=== PATIENT | female | born 1980 | race Caucasian/White ===

== ENCOUNTER 2020-03-27 11:10 | Emergency (ER) | payer BC ==
--- OUTSIDE RECORDS SUMMARY | 2020-03-27 11:12 | XMS REPORT | Continuity of Care Document ---
:1980 Author Organization [facility] t Address [address] [place] [address] [place] [id number] Care Team Providers Name Role Phone Unavailable Unavailable Unavailable Payers Payer Name Policy Type Policy Number Effective Date Expiration Date S ource Problems This patient has no known problems. Allergies, Adverse Reactions, Alerts Allergy Allergy Status Severity Reaction(s) Onset Inactive Treating Comm ents Source Name Type Date Date Clinician No Known DA Active U [facility] 10-23 Trinylan Allergie 00:00: d s 00 [facility] Medications This patient has no known medications. Procedures This patient has no known procedures. Results This patient has no known results.
[2020-03-27] MEDS ORDERED: NA CHLORIDE 0.9% 1,000 ML ONE (12:09)
[2020-03-27] MEDS ORDERED: MECLIZINE HCL 12.5 MG TAB ONE (12:09)
--- NOTE | 2020-03-27 12:27 | RAD REPORT ---
EXAM DESCRIPTION: Antonio Single View03/27/2020 12:17 pm CLINICAL HISTORY: Dizziness/50 COMPARISON: none FINDINGS: The lungs appear clear of acute infiltrate. The heart is normal size IMPRESSION: No acute abnormalities displayed
[2020-03-27 12:37] LABS: Absolute Lymphocytes (CBC) 0.8 K/uL (0.7-4.9); Basophils % 0.6 % (0-1.3); Hematocrit 45.7 % (36.0-45.0); Lymphocytes % 9.6 % (15.3-44.8); MPV 7.6 fL (7.6-11.3); RBC Red Blood Cell Count 4.77 M/uL (3.86-4.86)
[2020-03-27 12:40] LABS: Urine Blood TRACE (NEG); Urine Glucose NEGATIVE (NEG); Urine Protein NEGATIVE (NEG); Urine Specific Gravity 1.005 (1.005-1.030)
[2020-03-27 13:44] LABS: BUN Blood Urea Nitrogen 10 mg/dL (7-18); Bicarbonate 28 mmol/L (21-32); Glucose Level 125 mg/dL (74-106); Magnesium 2.6 mg/dL (1.8-2.4); Potassium 3.6 mmol/L (3.5-5.1); Sodium Level 141 mmol/L (136-145); Thyroid Stimulating Hormone 0.999 uIU/mL (0.360-3.740); Troponin (Emerg Dept Use Only) < 0.02 ng/mL (0.0-0.045)
[2020-03-27 13:59] LABS: T3 Free 2.87 pg/mL (2.18-3.98)
--- NOTE | 2020-03-27 14:27 | RAD REPORT ---
EXAM DESCRIPTION: CT - Head Brain Wo Cont - 03/27/2020 2:17 pm CLINICAL HISTORY: Dizziness COMPARISON: None. TECHNIQUE: Computed axial tomography of the head was obtained. IV contrast was not requested. All CT scans are performed using dose optimization technique as appropriate and may include automated exposure control or mA/KV adjustment according to patient size. FINDINGS: An intracranial bleed is not seen . The ventricles are normal in caliber. No extra-axial fluid collection is noted. Fluid within the sinuses/ mastoids is not seen. IMPRESSION: No acute intracranial abnormality is seen. If patient's symptoms persist MRI of the bra in would be recommended.
--- NOTE | 2020-03-27 14:39 | RAD REPORT ---
EXAM DESCRIPTION: Doris Angio03/27/2020 2:21 pm CLINICAL HISTORY: Dizziness/neck pain status post adjustment by chiropractor COMPARISON: None TECHNIQUE: 50 cc Isovue 370 was administered intravenously. 3D MIP reconstruction performed All CT scans are performed using dose optimization technique as appropriate and may include automated exposure control or mA/KV adjustment according to patient size. FINDINGS: The common carotid, internal and external carotid arteries bilaterally are normal caliber without stenosis or dissection. The left vertebral artery is little bit more dominant than the right. No dissection. IMPRESSION: Unremarkable exam NASCET criteria used. Mild 0-49% stenosis Moderate 50-69% stenosis Severe 70-99% stenosis
--- NOTE | 2020-03-27 14:53 | ER ---
Nurse's Notes [facility] Name: Emily Perrin Age: 40 yrs Sex: Female : 1980 Arrival Date: 03/27/2020 Time: 11:15 Bed 20 Private MD: Diagnosis: Dizziness and giddiness;Other fatigue;Cervicalgia Presentation: 03/27 11:33 Chief complaint: Patient states: Dizziness and fatigue today was more severe. Has had ll1 this for years, had MRI last year that was clear. Coronavirus screen: Client denies travel out of the [place] in the last 14 days. fatigue. Ebola Screen: Patient denies travel to an Ebola-affected area in the 21 days before illness onset. Initial Sepsis Screen: Does the patient meet any 2 criteria? No. Patient's initial sepsis screen is negative. Does the patient have a suspected source of infection? No. Patient's initial sepsis screen is negative. Risk Assessment: Do you want to hurt yourself or someone else? Patient reports no desire to harm self or others. Onset of symptoms was March 27, 2020. 11:33 Method Of Arrival: Ambulatory ll1 11:33 Acuity: SAM 3 ll1 Triage Assessment: 12:00 General: Appears in no apparent distress. uncomfortable, slender, well groomed, ae4 Behavior is cooperative, anxious. Pain: Denies pain. EENT: No signs and/or symptoms were reported regarding the EENT system. Neuro: Level of Consciousness is awake, alert, obeys commands, Oriented to person, place, time, situation, Appropriate for age Reports dizziness, "Feeling not right" and "Like I have to concentrate real hard to understand what you are saying".. Cardiovascular: Heart tones S1 S2 present Patient's skin is warm and dry. Rhythm is regular. Respiratory: Airway is patent Respiratory effort is even, unlabored, Respiratory pattern is regular, symmetrical, Breath sounds are clear bilaterally. GI: No signs and/or symptoms were reported involving the gastrointestinal system. : No signs and/or symptoms were reported regarding the genitourinary system. Derm: Skin is pink, warm \\T\\ dry. Musculoskeletal: No signs and/or symptoms reported regarding the musculoskeletal system. 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 - Social history:: Smoking status: Patient denies any tobacco usage or history of. Screenin:51 Abuse screen: Denies threats or abuse. Nutritional screening: No deficits noted. ae4 Tuberculosis screening: No symptoms or risk factors identified. Fall Risk None identified. Assessment: 12:11 Reassessment: Radiology at bedside. ae4 14:11 Reassessment: Pt currently in CT. sv 14:52 Reassessment: Provider at bedside. ae4 Vital Signs: 11:33 BP 141 / 82; Pulse 88; Resp 16; Temp 98.9; Pulse Ox 99% ; Weight 52.62 kg; Height 4 ft. ll1 11 in. (149.86 cm); Pain 0/10; 13:11 BP 123 / 77 LA Supine (auto/reg); Pulse 66; Pulse Ox 100% ; dh3 13:13 BP 133 / 82 LA Sitting (auto/reg); Pulse 72; Pulse Ox 100% on R/A; dh3 13:15 BP 137 / 94 LA Standing (auto/reg); Pulse 71; Pulse Ox 100% on R/A; dh3 14:55 BP 124 / 84; Pulse 63; Resp 16; Pulse Ox 100% on R/A; dh3 11:33 Body Mass Index 23.43 (52.62 kg, 149.86 cm) ll1 13:11 Pt report slight "light-headedness" dh3 ED Course: 11:15 Patient arrived in ED. ds1 11:30 Placed in gown. Bed in low position. Call light in reach. Side rails up X 1. Adult w/ ae4 patient. file keeper on. Pulse ox on. NIBP on. Warm blanket given. 11:31 Arm band placed on. ll1 11:35 Triage completed. ll1 11:37 Artemio Rey PA is PHCP. cp 11:37 Fernando Otoole MD is Attending Physician. cp 11:41 Pérez Allen RN is Primary Nurse. ae4 12:18 XRAY Chest (1 view) In Process Unspecified. EDMS 13:05 Inserted saline lock: 20 gauge in right antecubital area, using aseptic technique. ae4 Blood collected. 13:38 Test, Serum Sent. dh3 14:11 CT Neck Angio Sent. sv 14:11 CT Head Brain wo Cont Sent. sv 14:17 CT Head Brain wo Cont In Process Unspecified. EDMS 14:22 CT Neck Angio In Process Unspecified. EDMS 15:23 IV discontinued, intact, bleeding controlled, No redness/swelling at site. Pressure ae4 dressing applied. 15:23 No provider procedures requiring assistance completed. ae4 Administered Medications: 12:15 Drug: Meclizine 25 mg Route: PO; ae4 12:30 Drug: NS 0.9% 1000 ml Route: IV; Rate: 1 bolus; Site: right antecubital; ae4 Outcome: 14:53 Discharge ordered by . sommer 15:23 Patient left the ED. ae4 19:56 Discharged to home ambulatory, with significant other. ae4 19:56 Condition: stable 19:56 Discharge instructions given to patient, significant other, Instructed on discharge instructions, follow up and referral plans. Demonstrated understanding of instructions, follow-up care, medications, Prescriptions given X 2. Signatures: Dispatcher [employer] EDMS Valentina Gautam, RN RN Leilani Guan ds1 Artemio Rey PA PA cp Herrera, Deanna 3 Pérez Allen RN RN ae4 Larissa Solo RN RN ll1
--- NOTE | 2020-03-27 14:53 | EDPHYS ---
Physician Documentation [facility] Name: Emily Perrin Age: 40 yrs Sex: Female : 1980 Arrival Date: 03/27/2020 Time: 11:15 Bed 20 Private MD: ED Physician Fernando Otoole HPI: 03/27 11:45 This 40 yrs old Female presents to ER via Ambulatory with complaints of cp Dizziness, Fatigue. 11:45 The patient presents with lightheadedness, "mind feels foggy". Onset: The cp symptoms/episode began/occurred today, while exercising. 11:45 Associated signs and symptoms: Pertinent negatives: chest pain, confusion, focal cp weakness, head injury, headache, palpitations, syncope. Severity of symptoms: in the emergency department the symptoms have improved. Patient's baseline: Neuro: alert and fully oriented, Motor: no deficits, Ambulation: walks without assistance, Speech: normal. 11:45 The patient has experienced similar episodes in the past, several times. cp 11:45 Patient reports having neck pain over past several weeks and being treated by cp chiropractor who has performed adjustments. 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 - Social history:: Smoking status: Patient denies any tobacco usage or history of. ROS: 11:50 Constitutional: Positive for fatigue, Negative for body aches, chills, fever, poor PO cp intake. 11:50 Eyes: Negative for injury, pain, redness, and discharge. cp 11:50 ENT: Negative for ear pain, sore throat, difficulty swallowing, difficulty handling secretions. 11:50 Neck: Positive for pain with movement, tenderness, Negative for bony tenderness. 11:50 Cardiovascular: Negative for chest pain, edema, palpitations. 11:50 Respiratory: Negative for cough, shortness of breath, wheezing. 11:50 Abdomen/GI: Negative for abdominal pain, nausea, vomiting, and diarrhea. 11:50 Neuro: Positive for dizziness, Negative for altered mental status, numbness, weakness. 11:50 All other systems are negative. Exam: 11:55 Constitutional: The patient appears in no acute distress, alert, awake, cp non-diaphoretic, non-toxic, well developed, well nourished. 11:55 Head/Face: Normocephalic, atraumatic. cp 11:55 Eyes: Periorbital structures: appear normal, Pupils: equal, round, and reactive to light and accomodation, Extraocular movements: intact throughout, Conjunctiva: normal, no exudate, no injection, Lids and lashes: appear normal, bilaterally. 11:55 ENT: External ear(s): are unremarkable, Ear canal(s): are normal, clear, TM's: dullness, bilaterally, Nose: is normal, Mouth: is normal, Posterior pharynx: is normal, airway is patent, no erythema, no exudate. 11:55 Neck: External neck: tenderness, that is mild, of the right mid cervical area and right trapezius, ROM/movement: pain, that is mild, with rotation to the right, limited range of motion, is not appreciated, Meningeal signs: are not present, nuchal rigidity, is not appreciated. 11:55 Chest/axilla: Inspection: normal, Palpation: is normal, no crepitus, no tenderness. 11:55 Cardiovascular: Rate: normal, Rhythm: regular, Heart sounds: murmur, not appreciated, Edema: is not appreciated, JVD: is not appreciated. 11:55 Respiratory: the patient does not display signs of respiratory distress, Respirations: normal, no use of accessory muscles, no retractions, labored breathing, is not present, Breath sounds: are clear throughout, no decreased breath sounds. 11:55 Abdomen/GI: Inspection: abdomen appears normal, Palpation: abdomen is soft and non-tender, in all quadrants. 11:55 Back: pain, is absent, ROM is normal. 11:55 Neuro: Orientation: to person, place \\T\\ time. Mentation: is normal, Cerebellar function: is grossly normal, Motor: moves all fours, strength is normal, Sensation: is normal. 12:25 ECG was reviewed by the Attending Physician. cp Vital Signs: 11:33 BP 141 / 82; Pulse 88; Resp 16; Temp 98.9; Pulse Ox 99% ; Weight 52.62 kg; Height 4 ft. ll1 11 in. (149.86 cm); Pain 0/10; 13:11 BP 123 / 77 LA Supine (auto/reg); Pulse 66; Pulse Ox 100% ; dh3 13:13 BP 133 / 82 LA Sitting (auto/reg); Pulse 72; Pulse Ox 100% on R/A; dh3 13:15 BP 137 / 94 LA Standing (auto/reg); Pulse 71; Pulse Ox 100% on R/A; dh3 14:55 BP 124 / 84; Pulse 63; Resp 16; Pulse Ox 100% on R/A; dh3 11:33 Body Mass Index 23.43 (52.62 kg, 149.86 cm) ll1 13:11 Pt report slight "light-headedness" dh3 MDM: 11:37 Patient medically screened. cp 12:00 Differential diagnosis: cardiac arrhythmia, GI bleed, idiopathic dizziness, , cp TIA, vertigo, vertebral fracture, carotid dissection. 14:52 Data reviewed: vital signs, nurses notes, lab test result(s), EKG, radiologic studies, cp CT scan. 14:52 Counseling: I had a detailed discussion with the patient and/or guardian regarding: the cp historical points, exam findings, and any diagnostic results supporting the discharge/admit diagnosis, lab results, radiology results, the need for outpatient follow up, a family practitioner, to return to the emergency department if symptoms worsen or persist or if there are any questions or concerns that arise at home. Response to treatment: the patient's symptoms have mildly improved after treatment, and as a result, I will discharge patient. 03/27 11:53 Order name: Troponin (emerg Dept Use Only); Complete Time: 14:05 03/27 11:53 Order name: Basic Metabolic Panel; Complete Time: 14:05 03/27 14:05 Interpretation: Normal except: CL 109; GLUC 125; GFR 69. 03/27 11:53 Order name: CBC with Diff 03/27 13:57 Interpretation: Normal except: HGB 15.5; HCT 45.7; AMALIA% 85.2; LYM% 9.6. 03/27 11:53 Order name: Magnesium; Complete Time: 14:05 03/27 14:05 Interpretation: Abnormal: MG 2.6. 03/27 11:53 Order name: TSH; Complete Time: 14:05 03/27 11:53 Order name: T3 Free; Complete Time: 14:05 cp 03/27 11:53 Order name: CT Head Brain wo Cont; Complete Time: 14:45 cp 03/27 11:53 Order name: XRAY Chest (1 view); Complete Time: 13:57 cp 03/27 11:53 Order name: CT Neck Angio; Complete Time: 14:45 cp 03/27 12:05 Order name: Glucose, Ancillary Testing; Complete Time: 13:57 EDMS 03/27 12:32 Order name: Urine Dipstick--Ancillary (enter results); Complete Time: 13:57 eb 03/27 14:46 Interpretation: Normal except: UBLD TRACE. cp 03/27 13:24 Order name: Test, Serum; Complete Time: 13:57 cp 03/27 11:37 Order name: Orthostatics; Complete Time: 13:21 cp 03/27 11:53 Order name: Urine Dipstick-Ancillary (obtain specimen); Complete Time: 12:42 cp 03/27 11:53 Order name: EKG; Complete Time: 11:54 cp 03/27 11:53 Order name: Cardiac monitoring; Complete Time: 12:48 cp 03/27 11:53 Order name: EKG - Nurse/Tech; Complete Time: 12:48 cp 03/27 11:53 Order name: IV Saline Lock; Complete Time: 12:48 cp 03/27 11:53 Order name: Labs collected and sent; Complete Time: 12:49 cp 03/27 11:53 Order name: O2 Per Protocol; Complete Time: 12:49 cp 03/27 11:53 Order name: O2 Sat Monitoring; Complete Time: 12:49 cp EC:25 Rate is 73 beats/min. Rhythm is regular. GA interval is normal. QRS interval is normal. cp QT interval is normal. T waves are Inverted in leads III, aVR, V2. Interpreted by me. Reviewed by me. Administered Medications: 12:15 Drug: Meclizine 25 mg Route: PO; ae4 12:30 Drug: NS 0.9% 1000 ml Route: IV; Rate: 1 bolus; Site: right antecubital; ae4 Disposition: 03/28 06:59 Co-signature as Attending Physician, Fernando Otoole MD I agree with the assessment and kdr plan of care. Disposition: 03/27/20 14:53 Discharged to Home. Impression: Dizziness and giddiness, Other fatigue, Cervicalgia. - Condition is Stable. - Discharge Instructions: Dizziness, Fatigue, Neck Exercises. - Prescriptions for Meclizine 25 mg Oral Tablet - take 1 tablet by ORAL route every 8 hours As needed; 30 tablet. Mobic 7.5 mg Oral Tablet - take 1 tablet by ORAL route once daily take with food; 20 tablet. - Medication Reconciliation Form, Thank You Letter, Antibiotic Education, Prescription Opioid Use form. - Follow up: Private Physician; When: 2 - 3 days; Reason: Recheck today's complaints. - Problem is new. - Symptoms have improved. Signatures: Dispatcher [employer] EDMS Fernando Otoole MD MD kdr Artemio Rey PA PA cp Pérez Allen RN RN ae4 Larissa Solo RN RN ll1 Corrections: (The following items were deleted from the chart) 03/27 13:43 11:53 Urine Test ordered. cp dh3 15:23 14:53 03/27/2020 14:53 Discharged to Home. Impression: Dizziness and giddiness; Other ae4 fatigue; Cervicalgia. Condition is Stable. Forms are Medication Reconciliation Form, Thank You Letter, Antibiotic Education, Prescription Opioid Use. Follow up: Private Physician; When: 2 - 3 days; Reason: Recheck today's complaints. Problem is new. Symptoms have improved. cp
[2020-03-27 15:53] LABS: Blood Morphology Comment NOT SEEN (NOT SEEN); Platelet Estimate ADEQ; White Blood Cell Scan OK (OK)
[2020-03-27 20:33] VITALS: TEMP 98.9
[2020-03-27 20:35] VITALS: O2SAT 100
[2020-03-27 20:39] VITALS: BP 124/84
== END 2020-03-27 15:23 | disposition home or self-care (01) ==
LOC: ER 11:10
DX: R53.83 Other fatigue (principal); M54.2 Cervicalgia; Z98.82 Breast implant status
CPT/HCPCS: 93005; 85025; 80048; 36415; 83735; 84703; 82947; 84443; 81003; 84484; 84481; 70450; 70498; 71045; 99284; Q9967; J7030